=== PATIENT | male | born 1990 | race Caucasian/White ===

== ENCOUNTER 2022-12-20 20:42 | Emergency (ER) | payer SELFPAY ==
[2022-12-20 21:46] VITALS: BP 141/96; PULSE 62; RESP 15; TEMP 36.6; O2SAT 100
--- NOTE | 2022-12-20 23:05 | ED.GENADULT ---
HPI - General Adult General Chief complaint: Dental/Oral Stated complaint: Dental infection, facial swelling Time Seen by Provider: 12/20/22 23:05 Source: patient Mode of arrival: ambulatory Limitations: no limitations History of Present Illness HPI narrative: This is a 32-year-old male who presents to the ED with chief complaint of right-sided dental pain and facial swelling onset yesterday evening. Reports that he felt part of a feeling, loose and ever since then he feels like the right side has been infected. Reports this happened 1 time in the past in the left side and he improved with antibiotics orally. States he has been taking Tylenol and ibuprofen with some relief of the pain. Denies fevers, chills, nausea, vomiting, any vision problems or pain with eye movement. Related Data Allergies Allergy/AdvReac Type Severity Reaction Status Date / Time No Known Allergies Allergy Verified 12/20/22 23:18 Review of Systems Review of Systems: All systems as dictated in HPI Exam Narrative: GENERAL: Well-appearing, well-nourished, and in no acute distress. HEAD: Normocephalic, atraumatic. EYES: PERRLA and EOMI. no pain with EOMs. ENT: Area of gingival swelling just above the right upper canine and premolar. The area is tender to touch. No focal identifiable abscess. Dental caries in this area as well. No other oropharynx lesions noted. Mild right-sided facial swelling. Mild tenderness. No warmth or erythema. Nares clear, no rhinorrhea or epistaxis. Mucous membranes moist. Oropharynx without tonsillar hypertrophy exudate or other lesions. NECK: Supple. No adenopathy or masses. CHEST: No respiratory distress. Clear to auscultation. No wheezes rales or rhonchi HEART: Regular rate and rhythm. No murmur heard. Normal peripheral pulses. ABDOMEN: Soft, nontender, nondistended, normal active bowel sounds. MSK: Normal range of motion. No edema. SKIN: Warm, dry, no rash. NEURO: Alert and oriented x3. No focal deficits. PSYCH: Normal mood and affect. Course Vital Signs Vital signs: Vital Signs Temperature 98 F 12/20/22 21:46 Pulse Rate 62 12/20/22 21:46 Respiratory Rate 15 12/20/22 21:46 Blood Pressure 141/96 H 12/20/22 21:46 Pulse Oximetry 100 12/20/22 21:46 Temperature 98 F 12/20/22 21:46 Pulse Rate 62 12/20/22 21:46 Respiratory Rate 15 12/20/22 21:46 Blood Pressure 141/96 H 12/20/22 21:46 Pulse Oximetry 100 12/20/22 21:46 Medical Decision Making MDM Narrative Medical decision making narrative: This is a 32-year-old male who presents to the ED with chief complaint of right-sided dental pain and swelling for the past day and a half. Vitals are normal. Exam shows mild right-sided facial swelling as well as right upper gum swelling. No identifiable abscess. Dental caries noted. Prescription for Augmentin given. First dose of Augmentin given here. Toradol given here as well. Pt will be discharged in stable condition. Return precautions given and supportive measures discussed. Pt is understanding and agreeable with plan for discharge and follow-up with dentist. Vital Signs Vital Signs: Vital Signs Temperature 98 F 12/20/22 21:46 Pulse Rate 62 12/20/22 21:46 Respiratory Rate 15 12/20/22 21:46 Blood Pressure 141/96 H 12/20/22 21:46 Pulse Oximetry 100 12/20/22 21:46 Temperature 98 F 12/20/22 21:46 Pulse Rate 62 12/20/22 21:46 Respiratory Rate 15 12/20/22 21:46 Blood Pressure 141/96 H 12/20/22 21:46 Pulse Oximetry 100 12/20/22 21:46 Discharge Plan Discharge Clinical Impression: Toothache, Dental infection Patient Disposition: Home, Self-Care Condition: Stable Instructions: Antibiotic Form Additional Instructions: Your exam shows evidence of a dental infection. Please take antibiotics as prescribed. Follow-up with dentist soon as you can for definitive management. Please take Tylenol and ibuprofen every
[2022-12-20] MEDS: KETOROLAC 30 MG/ML VIAL (*BKC) IM (23:12)
[2022-12-20] MEDS: AMOXICILLIN/CLAVULANATE K 875-125 MG TAB 1 TABLET PO (23:12)
== END 2022-12-20 23:32 | disposition home or self-care (01) ==
PROVIDERS: Emergency Provider Physician Assistant
DX: K04.7 Periapical abscess without sinus (principal)
CPT/HCPCS: 96372; 99283; A9270; J1885